=== PATIENT | male | born 1970 | race Two or more races ===

== ENCOUNTER 2017-10-17 22:03 | Emergency (ER) | payer MEDICARE, OTHER ==
[~2017-10-17] VITALS: Ht 182.9 cm; Wt 95.3 kg
[2017-10-17 22:05] VITALS: BP 141/91
[2017-10-17] MEDS ORDERED: levETIRAcetam 500 MG in D5W 110 ML IV ONE (22:15)
--- NOTE | 2017-10-17 22:22 | Emergency Room Report ---
History of Present Illness General Chief Complaint: Altered Level of Consciousness Source: EMS Present Illness HPI Is a 47-year-old male with a known history. Per EMS, he has a history of alcohol abuse. He is currently in a sober living/transitional home. He presents with chief complaint of seizure. Someone heard a thought and found him on the floor. He had incontinence of his urine and vomiting. Unable to give further history. No seizure activity. Unknown duration. Unknown seizure history. Allergies: Coded Allergies: UNABLE TO ASSESS (Unverified , 10/17/17) Patient History Past Medical History: see triage record, old chart reviewed Past Surgical History: unable to obtain Pertinent Family History: unable to obtain Social History: Reports: alcohol use Immunizations: other Reviewed Nursing Documentation: PMH: Agreed, PSxH: Agreed Nursing Documentation-PMH Past Medical History Deferred: Pt Cognitively Impaired Review of Systems All Other Systems: limited - Secondary to condition Physical Exam Vital Signs Date Time Temp Pulse Resp B/P (MAP) Pulse Ox O2 Delivery O2 Flow Rate FiO2 10/17/17 21:50 108 20 154/99 96 Room Air vitals with tachycardia and high blood pressure Sp02 EP Interpretation: reviewed, normal General Appearance: well appearing, no apparent distress, Postictal Head: normocephalic, atraumatic Eyes: bilateral eye PERRL, bilateral eye EOMI ENT: normal pharynx, other - Tongue abrasion on right Neck: full range of motion, supple, no meningismus Respiratory: chest non-tender, lungs clear, normal breath sounds Cardiovascular #1: regular rate, rhythm, no murmur Gastrointestinal: normal bowel sounds, non tender, no mass, no organomegaly, no bruit, non-distended Musculoskeletal: back normal, normal range of motion Neurologic: grossly normal - Withdrawal to pain in all 4 extremities Psychiatric: mood/affect normal Skin: warm/dry Medical Decision Making Diagnostic Impression: Primary Impression: Altered level of consciousness Additional Impression: Seizure ER Course This patient presents new-onset seizure. He said he never had seizure before. He said is not a drinker or drug user. He is coming from a boarding care. He for several hours and now back to baseline. He does drive so will put him on a driving restriction and fill out a DMV report. No electrolyte abnormality. No head injury. We'll discharge home. Lab Results Impression labs unremarkable CT/MRI/US Diagnostic Results CT/MRI/US Diagnostic Results : Imaging Test Ordered: CT head Impression negative per radiologist Last Vital Signs Date Time Temp Pulse Resp B/P (MAP) Pulse Ox O2 Delivery O2 Flow Rate FiO2 10/17/17 21:50 108 20 154/99 96 Room Air Status: improved Disposition: HOME, SELF-CARE Condition: Stable Scripts Levetiracetam (KEPPRA) 500 Mg Tablet 500 MG ORAL EVERY 12 HOURS, #60 TAB 0 Refills Prov: HONG SCHULZ M.D. 10/18/17 Additional Instructions: Followup with your Dr. in [address] because of seizure. You need to be cleared by a neurologist in order drive. Return if symptom worsen. HONG SCHULZ M.D. Oct 17, 2017 22:22
[2017-10-17] MEDS ORDERED: levETIRAcetam 500mg vial IV ONE (22:32)
[2017-10-17 23:40] LABS: EOSINOPHILS % (AUTO) 1.3 % (0.0-3.0); HEMATOCRIT 37.2 % (42.0-52.0); HEMOGLOBIN 11.8 G/DL (14.2-18.0); LYMPHOCYTES % (AUTO) 13.4 % (20.0-45.0); MEAN CORPUSCULAR VOLUME 66 FL (80-99); MONOCYTES % (AUTO) 9.3 % (1.0-10.0); PLATELET COUNT 207 K/UL (150-450); RED BLOOD COUNT 5.65 M/UL (4.70-6.10); RED CELL DISTRIBUTION WIDTH 14.9 % (11.6-14.8); WHITE BLOOD COUNT 15.3 K/UL (4.8-10.8)
[2017-10-17 23:46] LABS: BILIRUBIN, URINE NEGATIVE (NEGATIVE); COLOR,URINE PALE YELLOW; GLUCOSE, URINE (UA) NEGATIVE (NEGATIVE); KETONES,URINE NEGATIVE (NEGATIVE); LEUKOCYTE ESTERASE ,URINE NEGATIVE (NEGATIVE); NITRITE,URINE NEGATIVE (NEGATIVE); PH,URINE 8 (4.5-8.0); PROTEIN,URINE NEGATIVE (NEGATIVE); UROBILINOGEN,URINE NORMAL MG/DL (0.0-1.0)
[2017-10-17 23:59] LABS: ANION GAP 7 mmol/L (5-15); BLOOD UREA NITROGEN 14 mg/dL (7-18); CALCIUM 9.1 MG/DL (8.5-10.1); CARBON DIOXIDE 29 MMOL/L (21-32); CHLORIDE 103 MMOL/L (98-107); CREATININE 0.8 MG/DL (0.55-1.30); POTASSIUM 3.9 MMOL/L (3.5-5.1); SODIUM 139 MMOL/L (136-145)
[2017-10-18 00:08] LABS: APPEARANCE,URINE CLEAR
[2017-10-18 01:00] VITALS: BP 151/103
[2017-10-18 03:00] VITALS: BP 154/101
[2017-10-18] MEDS ORDERED: KEPPRA500 M4 ORAL (04:09)
[2017-10-18 04:30] VITALS: BP 143/104
[2017-10-18 06:45] VITALS: BP 143/104
--- NOTE | 2017-10-18 10:13 | Diagnostic Imaging Report ---
Indication: Seizures Technique: Continuous helical CT scanning of the head was performed without intravenous contrast material. Axial and coronal 5 mm sections were generated. Radiation dose was minimized using automated exposure control Dose: Total Dose Length Product - DLP 1404.[address] Dose Index - CTDIvol(s) 70.38 mGy. Comparison: none Findings: The ventricular system is normal in size and configuration. There is no shift of midline structures. No abnormal extra-axial fluid collections are noted. There is no evidence of intracerebral bleeding. No other abnormal high or low density areas are noted within the brain. Impression: Normal CT scan of the head without contrast material. As described agrees stat rad The CT scanner at [facility] is accredited by the [employer] and the scans are performed using protocols designed to limit radiation exposure to as low as reasonably achievable to attain images of sufficient resolution adequate for diagnostic evaluation.
== END 2017-10-18 06:45 | disposition home or self-care (01) ==
LOC: EDBD 22:03 → EMR 23:00
DX: R41.82 Altered mental status, unspecified (principal); R56.9 Unspecified convulsions; F10.10 Alcohol abuse, uncomplicated
CPT/HCPCS: 36415; 70450; 80048; 80307; 81003; 82962; 85025; 96374; 96375; 99284; G0480; J1953; 80329